=== PATIENT | male | born 1985 | race Asian ===

== ENCOUNTER 2018-07-20 09:24 | Emergency (ER) | payer MEDICAID ==
[~2018-07-20] VITALS: Ht 177.8 cm; Wt 74.8 kg
[2018-07-20 09:35] VITALS: BP 159/103
--- NOTE | 2018-07-20 10:04 | Emergency Room Report ---
History of Present Illness General Chief Complaint: Back Pain-No Injury Source: Patient Present Illness HPI Patient present with complaints of low back pain ongoing for the past 5 days Patient feels increased pain when moving standing and walking better with rest denies any fall or trauma denies any abdominal pain denies any neuropathy Denies any paresthesia Denies any focal weakness in the upper or lower extremities these denies any loss of control of bowel/urination Patient points to the mid lower back region for the discomfort Allergies: Coded Allergies: ERYTHROMYCIN BASE (Verified Allergy, Unknown, 07/20/18) PENICILLINS (Verified Allergy, Unknown, 07/20/18) Patient History Past Medical History: see triage record Pertinent Family History: none Reviewed Nursing Documentation: PMH: Agreed; PSxH: Agreed Nursing Documentation-PMH Past Medical History: No History, Except For Hx Asthma: Yes Review of Systems All Other Systems: negative except mentioned in HPI Physical Exam Vital Signs Date Time Temp Pulse Resp B/P (MAP) Pulse Ox O2 Delivery O2 Flow Rate FiO2 07/20/18 09:35 98.2 67 20 159/103 98 Room Air Sp02 EP Interpretation: reviewed, normal General Appearance: well appearing, no apparent distress Head: normocephalic, atraumatic Eyes: bilateral eye PERRL, bilateral eye EOMI ENT: hearing grossly normal, normal pharynx Neck: supple Respiratory: lungs clear Cardiovascular #1: regular rate, rhythm Gastrointestinal: non tender, soft Musculoskeletal: other - Patient able to bend forward and sits back in extension without focal deficit, sensory is intact distally and proximally, discomfort is somewhat reproducible paraspinal bilaterally L3-4. No midline step-off Neurologic: alert, oriented x3, responsive, condenser cleaner III-XII nml as tested Skin: normal color, no rash Lymphatic: no adenopathy Medical Decision Making Diagnostic Impression: Primary Impression: Back pain ER Course Given the patient's history and presentation multiple differentials are considered Including neurological, neurosurgical, infectious, orthopedic pathology Patient does not have risk factors for epidural abscess There are no signs of any neurological deficits Patient reports that his work had requested clearance for work Patient was instructed that he would require follow-up with either Worker's Comp. physician or primary physician for further clearance At this time there are no emergency criteria indicating imaging And the patient requires improved outpatient follow-up Last Vital Signs Date Time Temp Pulse Resp B/P (MAP) Pulse Ox O2 Delivery O2 Flow Rate FiO2 07/20/18 09:35 98.2 67 20 159/103 98 Room Air Status: unchanged Disposition: HOME, SELF-CARE Condition: Stable Referrals: ACCESSIPA,REFERRING (PCP) Additional Instructions: Patient is provided with the discharge instructions notified to follow up with primary doctor in the next 2-3 days otherwise return to the er with any worsening symptoms. Please note that this report is being documented using [employer] technology. This can lead to erroneous entry secondary to incorrect interpretation by the dictating instrument. Mikala Maldonado DO Jul 20, 2018 10:03
[2018-07-20] MEDS ORDERED: IBUPROFEN600 MG ORAL (10:05)
[2018-07-20 10:15] VITALS: BP 159/103
== END 2018-07-20 10:16 | disposition home or self-care (01) ==
LOC: EMR 09:50
DX: M54.5 Low back pain (principal); Z88.0 Allergy status to penicillin; Z88.8 Allergy status to other drugs, medicaments and biological substances
CPT/HCPCS: 99283

== ENCOUNTER 2018-10-27 13:46 | Emergency (ER) | payer MEDICAID ==
[~2018-10-27] VITALS: Ht 177.8 cm; Wt 79.4 kg
[~2018-10-27 13:46] MED LIST: IBUPROFEN600 MG ORAL
[2018-10-27] MEDS ORDERED: NKM (14:02)
[2018-10-27 14:05] VITALS: BP 135/90
--- NOTE | 2018-10-27 14:08 | NUR ---
ED Nurse Note: Patient walked in c/o low back pain, left sided x 1 month; reports no injury. Reports no numbness or tingling in his lower extremities. Ambulating with steady gait to the room. 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
[2018-10-27] MEDS ORDERED: Methocarbamol 500mg tab ORAL ONE (14:15)
[2018-10-27] MEDS ORDERED: Ketorolac 30mg Inj IM ONE (14:15)
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
[2018-10-27 15:06] LABS: BILIRUBIN, URINE NEGATIVE (NEGATIVE); GLUCOSE, URINE (UA) NEGATIVE (NEGATIVE); KETONES,URINE NEGATIVE (NEGATIVE); LEUKOCYTE ESTERASE ,URINE 1+ (NEGATIVE); NITRITE,URINE NEGATIVE (NEGATIVE); PH,URINE 5 (4.5-8.0); PROTEIN,URINE NEGATIVE (NEGATIVE); UROBILINOGEN,URINE NORMAL MG/DL (0.0-1.0)
[2018-10-27 15:07] LABS: APPEARANCE,URINE CLEAR; COLOR,URINE YELLOW
[2018-10-27] MEDS ORDERED: LIDOCAINE700 M1 TP (15:32)
[2018-10-27] MEDS ORDERED: IBUPROFEN600 MG ORAL (15:32)
[2018-10-27] MEDS ORDERED: ROBAXIN500 MG PO (15:32)
[2018-10-27 15:42] VITALS: BP 128/78
--- NOTE | 2018-10-27 15:43 | NUR ---
ER DISCHARGE NOTE: Patient is cleared to be discharged per ERMD, pt is aox4, on room air, with stable vital signs. pt was given dc and prescription instructions, pt was able to verbalize understanding, pt id band removed without complications. pt is able to ambulate with steady gait. pt took all belongings.
== END 2018-10-27 15:45 | disposition home or self-care (01) ==
LOC: EMR 14:17
DX: M54.9 Dorsalgia, unspecified (principal); G89.29 Other chronic pain; J45.909 Unspecified asthma, uncomplicated; Z88.0 Allergy status to penicillin
CPT/HCPCS: 81003; 96372; 99283; J1885

== ENCOUNTER 2019-04-11 09:52 | Emergency (ER) | payer MEDICAID ==
[~2019-04-11] VITALS: Ht 177.8 cm; Wt 74.8 kg
[~2019-04-11 09:52] MED LIST changes: +LIDOCAINE700 M1 TP; +NKM; +ROBAXIN500 MG PO
[2019-04-11 10:01] VITALS: BP 145/95
--- NOTE | 2019-04-11 10:05 | NUR ---
ED Nurse Note: Patient c/o asthma since last night. Patient lost rescue inhaler and requesting breathing treatment. Regular, unlabored breathing noted. Reports no changes in voice or audible wheezing. Patient able to speak full sentence without problem. Placed patient in room.
[2019-04-11] MEDS ORDERED: Albuterol/Ipratropium 3ml neb HHN ONE (10:15)
--- NOTE | 2019-04-11 10:18 | Emergency Room Report ---
History of Present Illness General Chief Complaint: Asthma Source: Patient Present Illness HPI Disclaimer: Please note that this report is being documented using [employer] technology. This can lead to erroneous entry secondary to incorrect interpretation by the dictating instrument. HPI: 33-year-old male with a history of asthma presents for evaluation of shortness of breath. He was in his usual state of health until yesterday when he went over to his friend's house who has several cats. Cats are an allergy trigger for the patient and began to feel wheezing and shortness of breath. Denies cough, sore throat, itchy eyes, chest pain, vomiting, diarrhea, rash or other symptoms at this time. He lost his albuterol inhaler last week. He only uses it as needed. Denies cough, phlegm or other symptoms. He is requesting a refill of his medication. PMH: Asthma PSH: Denies Allergies: Insulin Social Hx: Denies alcohol abuse, denies drug use Allergies: Coded Allergies: ERYTHROMYCIN BASE (Verified Allergy, Unknown, 07/20/18) PENICILLINS (Verified Allergy, Unknown, 07/20/18) Nursing Documentation-PMH Past Medical History: No History, Except For Hx Cardiac Problems: No Hx Hypertension: No Hx Pacemaker: No Hx Asthma: Yes Hx COPD: No Hx Diabetes: No Hx Cancer: No Hx Gastrointestinal Problems: No Hx Dialysis: No Hx Neurological Problems: No Hx Cerebrovascular Accident: No Hx Seizures: No Review of Systems All Other Systems: negative except mentioned in HPI Physical Exam Vital Signs Date Time Temp Pulse Resp B/P (MAP) Pulse Ox O2 Delivery O2 Flow Rate FiO2 04/11/19 10:01 98.6 61 18 145/95 (112) 95 Room Air General: Awake and alert, no acute distress HEENT: NC/AT. EOMI. Neck: Supple, trachea midline Chest Wall: No tenderness, no deformity Cardiovascular: RRR. S1 and S2 normal. No murmur appreciated Resp: Normal work of breathing. No cough, no crackles. Inspiratory and expiratory wheezes bilaterally. Abdomen: Abdomen is soft, nondistended. Nontender Skin: Intact. No abrasions, laceration or rash over the exposed skin MSK: Normal tone and bulk. Moving all extremities. No obvious deformity. Neuro: Awake and alert. Mentating appropriately. Medical Decision Making Diagnostic Impression: Primary Impression: Asthma ER Course 33-year-old male with a history of asthma presents for evaluation of asthma exacerbation. Patient is nonlabored breathing, mild wheezing. He lost his albuterol inhaler and is requesting a refill. 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 We will refill his inhaler and give him 1 DuoNeb in the emergency department. No respiratory distress, no URI symptoms. Otherwise in his usual state of health. Last Vital Signs Date Time Temp Pulse Resp B/P (MAP) Pulse Ox O2 Delivery O2 Flow Rate FiO2 04/11/19 10:01 98.6 18 145/95 95 Room Air 04/11/19 10:01 61 Disposition: HOME, SELF-CARE Condition: Stable Scripts Albuterol Sulfate* (ALBUTEROL SULFATE MDI*) 8.5 Gm Hfa.aer.ad 2 PUFF INH Q4H PRN for cough/wheezing, #1 EA 0 Refills Prov: Mina Molina MD 04/11/19 Mina Molina MD Apr 11, 2019 10:18
[2019-04-11] MEDS ORDERED: ALBUTEROL SULF8.5 GM INH (10:20)
--- NOTE | 2019-04-11 10:52 | NUR ---
ER DISCHARGE NOTE: Patient is cleared to be discharged per ERMD DR VALDIVIA, pt is aox4, on room air, with stable vital signs. pt was given dc and prescription instructions, pt was able to verbalize understanding, pt id band removed without complications. pt is able to ambulate with steady gait. pt took all belongings.
== END 2019-04-11 10:51 | disposition home or self-care (01) ==
LOC: EMR 10:16
DX: J45.909 Unspecified asthma, uncomplicated (principal); Z88.0 Allergy status to penicillin; Z88.1 Allergy status to other antibiotic agents; Z88.8 Allergy status to other drugs, medicaments and biological substances
CPT/HCPCS: 94640; 94664; 99284; J7620